=== PATIENT | female | born 1975 | race Caucasian/White ===

== ENCOUNTER → 2017-09-30 12:14 | Outpatient (CLI) | payer OTHER, SELFPAY ==
--- NOTE | 2017-09-30 | DI.MG.S_ITS ---
BILATERAL DIGITAL SCREENING MAMMOGRAM 3D/2D WITH CAD: 09/30/2017 CLINICAL: Routine screening. Comparison is made to exams dated: 08/28/2016 mammogram, 07/22/2015 mammogram, and 07/20/2014 mammogram - [facility]. The tissue of both breasts is heterogeneously dense. This may lower the sensitivity of mammography. Current study was also evaluated with a Computer Aided Detection (CAD) system. There are benign calcifications in both breasts. No significant masses, calcifications, or other findings are seen in either breast. There has been no significant interval change. IMPRESSION: BENIGN There is no mammographic evidence of malignancy. A 1 year screening mammogram is recommended. This exam was interpreted at Station ID: [id number]. NOTE: For mammograms, a report in lay terms will be sent to the patient. Approximately 15% of breast malignancies will not be visualized mammographically. In the management of a palpable breast mass, a negative mammogram must not discourage biopsy of a clinically suspicious lesion. Electronically Signed By: Ranjit moy/wero:09/30/2017 20:32:59 copy to: Olivia Lewis letter sent: Normal Exam ACR BI-RADS Category 2: Benign Finding(s) 3342F
== END ==
PROVIDERS: Family Provider Family Medicine; PCP Family Medicine; Visit Provider Family Medicine
DX: Z12.31 Encounter for screening mammogram for malignant neoplasm of breast (principal)
CPT/HCPCS: 77063; 77067

== ENCOUNTER → 2017-10-30 15:46 | Outpatient (CLI) | payer OTHER, SELFPAY ==
[2017-10-30 16:09] LABS: Add Manual Diff / Slide Review NO; Basophils Percent Auto 1.3 % (0-2); Eosinophils Percent Auto 2.3 % (2-4); Hematocrit 39.3 % (36-46); Hemoglobin 13.5 g/dL (12.0-16.0); Lymphocytes Percent Auto 24.7 % (25-40); Mean Corpuscular HGB Conc 34.4 % (30-36); Mean Corpuscular Volume 87.2 fL (80-100); Monocytes Percent Auto 8.5 % (3-14); Neutrophils Absolute Auto 5000 /uL (3000-5900); Neutrophils Percent Auto 63.2 % (50-75); Platelet Count 243 X10^3/uL (150-400); Red Cell Distribution Width 12.7 % (11.6-14.8); White Blood Cell Count 7.9 X10^3/uL (4.5-11.0)
[2017-10-30 16:56] LABS: Erythrocyte Sedimentation Rate 14 MM/HR (0-20)
[2017-10-30 17:15] LABS: Alanine Aminotransferase 20 IU/L (9-52); Albumin 4.3 g/dL (3.5-5.0); Albumin Globulin Ratio 1.5 (1.0-2.8); Alkaline Phosphatase 56 U/L (38-126); Aspartate Aminotransferase 23 IU/L (14-36); Bilirubin Total 0.5 mg/dL (0.2-1.3); Blood Urea Nitrogen 21 mg/dL (7-17); C-Reactive Protein Quant < 0.5 mg/dL (<1.0); Calcium 9.9 mg/dL (8.4-10.2); Carbon Dioxide 27 mmol/L (22-32); Chloride 103 mmol/L (98-107); Estimated Glomerular Filt Rate > 60.0 mL/min (>60); Globulin 2.9 g/dL (1.7-4.1); Glucose 93 mg/dL (70-100); HEMOLYSIS < 15 (0-50); Potassium 4.9 mmol/L (3.4-5.1); Sodium 142 mmol/L (137-145); Total Protein 7.2 g/dL (6.3-8.2)
[2017-10-30 17:38] LABS: Vitamin D 25 Hydroxy (D3) 49.5 ng/mL (30.0-100.0)
[2017-10-30 17:47] LABS: Ferritin 37.4 ng/mL (6.27-137)
[2017-10-30 17:52] LABS: TSH w/ Reflex to FT4 2.57 uIU/mL (0.47-4.68)
[2017-10-30 18:01] LABS: Vitamin B12 974 pg/mL (239-931)
== END ==
PROVIDERS: Family Provider Family Medicine; PCP Family Medicine; Visit Provider Family Medicine
DX: K14.6 Glossodynia (principal); M54.9 Dorsalgia, unspecified
CPT/HCPCS: 36415; 80053; 82306; 82607; 82728; 84443; 85025; 85651; 86140

== ENCOUNTER 2018-02-06 10:07 | Emergency (ER) | payer OTHER, SELFPAY ==
[2018-02-06 10:15] VITALS: BP 148/98; PULSE 72; RESP 16; TEMP 36.4; O2SAT 100
[2018-02-06] MEDS: ONDANSETRON 4 MG/2 ML INJ IV (11:58)
[2018-02-06] MEDS: SODIUM CHLORIDE 0.9% 1,000 ML 1000 ML IV (11:58)
[2018-02-06 12:20] VITALS: BP 123/77; PULSE 60; RESP 14; O2SAT 100
--- NOTE | 2018-02-06 12:21 | ED.ABDPAIN ---
HPI - Abdominal Pain <LUDIVINA Durbin - Last Filed: 02/06/18 21:44> General Chief Complaint: Abdominal Pain Stated Complaint: POSSIBLE APPENDICITIS Time Seen by Provider: 02/06/18 12:06 Source: patient Mode of arrival: ambulatory Limitations: no limitations History of Present Illness HPI narrative: 42-year-old female with history of hypothyroidism and is a nonsmoker here for complaint of abdominal pain over the past couple of days. She states area it mostly to her right lower quadrant that started yesterday. She denies any urinary symptoms. She does report having some constipation last bowel movement was earlier today were was 1st constipation and then diarrhea. She reports that after having the bowel movement she did have some reduction of her discomfort. She denies any fevers or chills. No bloody stool. Positive p.o. intake although last today. She denies any stressors of her discomfort. complaint: abdominal pain Related Data Home Medications Medication Instructions Recorded Confirmed [PROTANDIM] 1 tab PO DAILY #0 07/30/16 02/06/18 Fat Burner 1 dose PO DIRECTED 02/06/18 02/06/18 Probiotic 1 cap PO DAILY 02/06/18 02/06/18 Previous Rx's Medication Instructions Recorded magnesium citrate 296 ml PO NOW #296 ml 02/06/18 polyethylene glycol 3350 [Miralax] 17 gram PO DAILY #14 each 02/06/18 Allergies Allergy/AdvReac Type Severity Reaction Status Date / Time Cephalosporins Allergy Severe ANAPHYLAXIS Verified 10/30/17 15:11 [CEPHALOSPORINS] ketorolac [From TORADOL] Allergy Severe VISION Verified 10/30/17 15:11 CHANGES/LOSS OF VISION Sulfa (Sulfonamide Allergy Severe ANAPHYLAXIS Verified 10/30/17 15:11 Antibiotics) [SULFA (SULFONAMIDE ANTIBIOTICS)] Review of Systems <LUDIVINA Durbin - Last Filed: 02/06/18 21:44> Constitutional Denies chills, Denies fatigue, Denies fever(s), Denies lethargy and Denies weakness Eyes Denies change in vision, Denies eye discharge, Denies irritation and Denies loss of vision ENT Ears, Nose, Mouth, and Throat: Denies change in voice, Denies neck pain and Denies sore throat Cardiovascular Denies dyspnea and Denies dyspnea on exertion Respiratory Denies cough, Denies dyspnea, Denies dyspnea on exertion and Denies wheezing Gastrointestinal Gastrointestinal: Reports abdominal pain and Reports constipation Genitourinary Denies hematuria, Denies flank pain, Denies urinary incontinence and Denies urinary urgency Musculoskeletal Denies neck pain Integumentary/Breasts Denies pruritus, Denies erythema, Denies rash and Denies wounds Neurologic Denies confusion, Denies loss of vision and Denies weakness Psychiatric Denies anxiety, Denies confusion, Denies depression, Denies homicidal ideation and Denies suicidal ideation Endocrine Denies fatigue and Denies flushing Hematologic/Lymphatic Denies easy bruising Allergic/Immunologic Denies wheezing Exam <LUDIVINA Durbin - Last Filed: 02/06/18 21:44> Initial Vital Signs Initial Vital Signs: Vital Signs Temperature 97.6 F 02/06/18 10:15 Pulse Rate 72 02/06/18 10:15 Respiratory Rate 16 02/06/18 10:15 Blood Pressure 148/98 H 02/06/18 10:15 Pulse Oximetry 100 02/06/18 10:15 Const General: cooperative and well developed Nutritional Appearance: well nourished Orientation: alert, awake, oriented x3 and not confused [facility] Mouth: oral mucosae normal and moist mucous membranes Eyes Conjunctivae: conjunctivae normal Sclera: sclerae normal Pupils: PERRL EOM: EOM intact bilaterally Resp Effort & Inspection: normal respiratory effort, able to speak in complete sentences, no respiratory distress and no use of accessory muscles Auscultation: clear to auscultation bilaterally, no rales, no rhonchi and no wheezes Cardio Rate: regular rate Rhythm: regular rhythm Heart Sounds: no click, no gallops, no murmurs and no rubs GI Inspection: non-distended Palpation: soft, no hepatosplenomegaly, No guarding, No pulsatile mass and No tender Auscultation: normal bowel sounds Other: Mild tenderness on palpation of the right lower quadrant. General: No CVA tenderness Skin General: no rashes or lesions noted, No jaundice and No petechiae Neuro General: alert, oriented x3, gait normal and no focal motor deficits Speech: speech normal <Barbara Lange DO - Last Filed: 02/07/18 08:28> Initial Vital Signs Initial Vital Signs: Vital Signs Temperature 97.6 F 02/06/18 10:15 Pulse Rate 72 02/06/18 10:15 Respiratory Rate 16 02/06/18 10:15 Blood Pressure 148/98 H 02/06/18 10:15 Pulse Oximetry 100 02/06/18 10:15 Course <LUDIVINA Durbin - Last Filed: 02/06/18 21:44> Orders Ordered: Discontinued Medications Sodium Chloride (Normal Saline 0.9%) 1,000 mls @ 1,000 mls/hr IV BOLUS ONE Stop: 02/06/18 12:54 Last Infusion: 02/06/18 13:30 Dose: 0 mls/hr Admin: 02/06/18 11:58 Dose: 1,000 mls/hr Ondansetron HCl (Zofran) 4 mg IV NOW ONE Stop: 02/06/18 11:39 Last Admin: 02/06/18 11:58 Dose: 4 mg Vital Signs - 8 hr 02/06/18 14:27 Pulse Rate 70 Respiratory Rate 14 Blood Pressure [Left Arm] 122/74 Pulse Oximetry 99 <Barbara Lange DO - Last Filed: 02/07/18 08:28> Orders Ordered: Discontinued Medications Sodium Chloride (Normal Saline 0.9%) 1,000 mls @ 1,000 mls/hr IV BOLUS ONE Stop: 02/06/18 12:54 Last Infusion: 02/06/18 13:30 Dose: 0 mls/hr Admin: 02/06/18 11:58 Dose: 1,000 mls/hr Ondansetron HCl (Zofran) 4 mg IV NOW ONE Stop: 02/06/18 11:39 Last Admin: 02/06/18 11:58 Dose: 4 mg Vital Signs - 8 hr 02/06/18 14:27 Pulse Rate 70 Respiratory Rate 14 Blood Pressure [Left Arm] 122/74 Pulse Oximetry 99 MDM - Abdominal Pain <LUDIVINA Durbin - Last Filed: 02/06/18 21:44> Lab Data Result diagrams: 02/06/18 12:35 02/06/18 12:35 Lab Results 02/06/18 02/06/18 02/06/18 Range/Units 12:35 12:35 12:35 WBC 5.7 (4.5-11.0) X10^3/uL RBC 4.40 (4.0-5.2) X10^6/uL Hgb 12.9 (12.0-16.0) g/dL Hct 38.1 (36-46) % MCV 86.7 (80-100) fL MCH 29.3 (26-34) PG MCHC 33.7 (30-36) % RDW 12.7 (11.6-14.8) % Plt Count 227 (150-400) X10^3/uL Neut % (Auto) 58.7 (50-75) % Lymph % (Auto) 31.3 (25-40) % [place] % (Auto) 6.6 (3-14) % Eos % (Auto) 1.9 L (2-4) % Baso % (Auto) 1.5 (0-2) % Neut # (Auto) 3400 (8895-3380) /uL PT 11.5 (10.1-12.7) SECONDS INR 1.0 (0.9-1.3) APTT 30 (26.4-36.2) SECONDS Sodium 145 (137-145) mmol/L Potassium 4.2 (3.4-5.1) mmol/L Chloride 108 H (98-107) mmol/L Carbon Dioxide 24 (22-32) mmol/L BUN 11 (7-17) mg/dL Creatinine 0.90 (0.52-1.04) mg/dL Estimated GFR > 60.0 (>60) mL/min BUN/Creatinine Ratio 12.2 (6-22) Glucose 88 (70-100) mg/dL Calcium 8.6 (8.4-10.2) mg/dL Total Bilirubin 0.3 (0.2-1.3) mg/dL AST 20 (14-36) IU/L ALT 28 (9-52) IU/L Alkaline Phosphatase 56 (38-126) U/L Total Protein 6.6 (6.3-8.2) g/dL Albumin 3.9 (3.5-5.0) g/dL Globulin 2.7 (1.7-4.1) g/dL Albumin/Globulin Ratio 1.4 (1.0-2.8) Lipase 129 (23-300) U/L Point of care testing: Point of Care Testing Test Results Negative Urine Dip Bedside Urine Glucose Negative Bedside Urine Bilirubin - Negative Bedside Urine Ketone - Negative Urine Specific Baxter 1.015 Bedside Urine Occult Blood - Negative Bedside Urine pH 6.5 Bedside Urine Protein - Negative Bedside Urine Urobilinogen - Negative Bedside Urine Nitrite - Negative Bedside Urine Leukocytes - Negative Esterase ECG Data Interpretation: [address] [place] [id number] Scan Report Signed Patient: Lisa Nice MR#: [id number] : 1975 Acct:[id number] Age/Sex: 42 / F Date of Service: 02/06/18 Loc: ED Accession Number: [id number] Procedure: CT abdomen pelvis w con Ordering Provider: Luis Higgins PROCEDURE: CT ABDOMEN PELVIS W CON INDICATIONS: Right lower quadrant pain TECHNIQUE: After the administration of intravenous contrast, 5 mm thick sections acquired from the diaphragm to the symphysis. 5 mm coronal and sagittal reformats were acquired. For radiation dose reduction, the following was used: automated exposure control, adjustment of mA and/or kV according to patient size. COMPARISON: [facility], CT, ABDOMEN/PELVIS WITH CONTRAST, 07/30/2016, 18:24. FINDINGS: Image quality: Excellent. ABDOMEN: Lung bases: Lung bases are clear. Heart size is normal. Solid organs: Liver is enlarged. Gallbladder is unremarkable. Biliary system is non dilated. Pancreas enhances normally. Spleen is normal in size and enhancement. No adrenal nodules. Kidneys demonstrate normal size and enhancement, without hydronephrosis. Peritoneum and bowel: Bowel loops demonstrate normal wall thickness and caliber. No free fluid or air. Colonic diverticula are present. There is a very minimal appearance of thickening without definitive pericolonic inflammation within the distal descending colon. Prominent stool is present throughout the colon. Nodes and vessels: No retroperitoneal or mesenteric adenopathy by size criteria. Aorta and inferior vena cava are normal in size. Miscellaneous: No ventral hernias. PELVIS: Genitourinary: Bladder wall thickness is normal. Miscellaneous: No inguinal hernias or adenopathy. Bones: No suspicious bony lesions. No vertebral body compression fractures. IMPRESSION: 1. Minimal appearance of thickening in the distal descending colon without inflammatory change. It could be secondary to incomplete distension. However, correlation to patient's symptoms is recommended, as early colitis cannot be excluded. Dictated by: Jesi Grey M.D. on 02/06/2018 at 13:59 Approved by: Jesi Grey M.D. on 02/06/2018 at 14:35 MDM Narrative Medical decision making narrative: CBC Chem panel and lipase were obtained were unremarkable. Urinalysis was negative for urinary tract infection and . CT of the abdomen was obtained and shows a prominent amount of stool throughout the colon. CT also shows some minimal thickening of the the distal descending colon with no inflammatory changes. Pain is mostly to the right lower quadrant at this time. Doubtful that this is significant finding. With prominent amount of stool throughout the colon suspect the that constipation is cause of her discomfort. Will treat her with magnesium citrate to help lower stool load. Follow up with primary care provider in the next few days for re-evaluation. She is also prescribed MiraLax for the next couple weeks also see if it helps with her constipation. Plenty of fluids. For any worsening symptoms return emergency room. <Barbara Lange, DO - Last Filed: 02/07/18 08:28> Lab Data Lab Results 02/06/18 02/06/18 02/06/18 Range/Units 12:35 12:35 12:35 WBC 5.7 (4.5-11.0) X10^3/uL RBC 4.40 (4.0-5.2) X10^6/uL Hgb 12.9 (12.0-16.0) g/dL Hct 38.1 (36-46) % MCV 86.7 (80-100) fL MCH 29.3 (26-34) PG MCHC 33.7 (30-36) % RDW 12.7 (11.6-14.8) % Plt Count 227 (150-400) X10^3/uL Neut % (Auto) 58.7 (50-75) % Lymph % (Auto) 31.3 (25-40) % [place] % (Auto) 6.6 (3-14) % Eos % (Auto) 1.9 L (2-4) % Baso % (Auto) 1.5 (0-2) % Neut # (Auto) 3400 (0319-7848) /uL PT 11.5 (10.1-12.7) SECONDS INR 1.0 (0.9-1.3) APTT 30 (26.4-36.2) SECONDS Sodium 145 (137-145) mmol/L Potassium 4.2 (3.4-5.1) mmol/L Chloride 108 H (98-107) mmol/L Carbon Dioxide 24 (22-32) mmol/L BUN 11 (7-17) mg/dL Creatinine 0.90 (0.52-1.04) mg/dL Estimated GFR > 60.0 (>60) mL/min BUN/Creatinine Ratio 12.2 (6-22) Glucose 88 (70-100) mg/dL Calcium 8.6 (8.4-10.2) mg/dL Total Bilirubin 0.3 (0.2-1.3) mg/dL AST 20 (14-36) IU/L ALT 28 (9-52) IU/L Alkaline Phosphatase 56 (38-126) U/L Total Protein 6.6 (6.3-8.2) g/dL Albumin 3.9 (3.5-5.0) g/dL Globulin 2.7 (1.7-4.1) g/dL Albumin/Globulin Ratio 1.4 (1.0-2.8) Lipase 129 (23-300) U/L Point of care testing: Point of Care Testing Test Results Negative Urine Dip Bedside Urine Glucose Negative Bedside Urine Bilirubin - Negative Bedside Urine Ketone - Negative Urine Specific Baxter 1.015 Bedside Urine Occult Blood - Negative Bedside Urine pH 6.5 Bedside Urine Protein - Negative Bedside Urine Urobilinogen - Negative Bedside Urine Nitrite - Negative Bedside Urine Leukocytes - Negative Esterase Discharge Plan Departure Patient Disposition: Home Clinical Impression: Abdominal pain Discharge Date/Time: 02/06/18 15:14 Interventions: ED Discharge Assessment Last Done: 02/06/18 15:13 Instructions: DI for Abdominal Pain-Adult Activity Restrictions/Additional Instructions: Laboratory results today were unremarkable. CT of the abdomen shows a good amount of stool in the colon. The suspect that constipation is cause of your discomfort. Your prescribed a laxative called magnesium citrate and also MiraLax. Follow up with primary care provider in the next couple days for re-evaluation. For any worsening symptoms return emergency room. Plenty of fluids. Prescriptions: New magnesium citrate solution 296 ml PO NOW Qty: 296 RF: 0 polyethylene glycol 3350 [Miralax] 17 gram powder in packet 17 gram PO DAILY Qty: 14 RF: 0 No Action [PROTANDIM] 1 tab PO DAILY Qty: 0 RF: 0 Probiotic 1 cap PO DAILY RF: 0 Fat Burner 1 dose PO DIRECTED RF: 0 Referrals: Pacheco Jacobs MD [Primary Care Provider] - <Barbara Lange DO - Last Filed: 02/07/18 08:28> Cosign ED Attending Cosignature Attestation: I was immediately available in the department for consultation. This documentation has been reviewed and I agree with assessment and plan. Supervised by Barbara Lange DO
--- NOTE | 2018-02-06 12:29 | DI.CT.S_ITS ---
PROCEDURE: CT ABDOMEN PELVIS W CON INDICATIONS: Right lower quadrant pain TECHNIQUE: After the administration of intravenous contrast, 5 mm thick sections acquired from the diaphragm to the symphysis. 5 mm coronal and sagittal reformats were acquired. For radiation dose reduction, the following was used: automated exposure control, adjustment of mA and/or kV according to patient size. COMPARISON: [facility], CT, ABDOMEN/PELVIS WITH CONTRAST, 07/30/2016, 18:24. FINDINGS: Image quality: Excellent. ABDOMEN: Lung bases: Lung bases are clear. Heart size is normal. Solid organs: Liver is enlarged. Gallbladder is unremarkable. Biliary system is non dilated. Pancreas enhances normally. Spleen is normal in size and enhancement. No adrenal nodules. Kidneys demonstrate normal size and enhancement, without hydronephrosis. Peritoneum and bowel: Bowel loops demonstrate normal wall thickness and caliber. No free fluid or air. Colonic diverticula are present. There is a very minimal appearance of thickening without definitive pericolonic inflammation within the distal descending colon. Prominent stool is present throughout the colon. Nodes and vessels: No retroperitoneal or mesenteric adenopathy by size criteria. Aorta and inferior vena cava are normal in size. Miscellaneous: No ventral hernias. PELVIS: Genitourinary: Bladder wall thickness is normal. Miscellaneous: No inguinal hernias or adenopathy. Bones: No suspicious bony lesions. No vertebral body compression fractures. IMPRESSION: 1. Minimal appearance of thickening in the distal descending colon without inflammatory change. It could be secondary to incomplete distension. However, correlation to patient's symptoms is recommended, as early colitis cannot be excluded. Dictated by: Jesi Grey M.D. on 02/06/2018 at 13:59 Approved by: Jesi Grey M.D. on 02/06/2018 at 14:35
[2018-02-06 12:49] LABS: Prothrombin Time 11.5 SECONDS (10.1-12.7)
[2018-02-06 12:50] LABS: Add Manual Diff / Slide Review NO; Basophils Percent Auto 1.5 % (0-2); Eosinophils Percent Auto 1.9 % (2-4); Hematocrit 38.1 % (36-46); Hemoglobin 12.9 g/dL (12.0-16.0); Lymphocytes Percent Auto 31.3 % (25-40); Mean Corpuscular HGB Conc 33.7 % (30-36); Mean Corpuscular Hemoglobin 29.3 PG (26-34); Mean Corpuscular Volume 86.7 fL (80-100); Monocytes Percent Auto 6.6 % (3-14); Neutrophils Absolute Auto 3400 /uL (1500-7000); Neutrophils Percent Auto 58.7 % (50-75); Platelet Count 227 X10^3/uL (150-400); Red Cell Distribution Width 12.7 % (11.6-14.8); White Blood Cell Count 5.7 X10^3/uL (4.5-11.0)
[2018-02-06 12:52] LABS: PTT Partial Thromboplastin Tim 30 SECONDS (26.4-36.2)
[2018-02-06 12:54] LABS: Alanine Aminotransferase 28 IU/L (9-52); Albumin 3.9 g/dL (3.5-5.0); Albumin Globulin Ratio 1.4 (1.0-2.8); Alkaline Phosphatase 56 U/L (38-126); Aspartate Aminotransferase 20 IU/L (14-36); BUN Creatinine Ratio 12.2 (6-22); Bilirubin Total 0.3 mg/dL (0.2-1.3); Blood Urea Nitrogen 11 mg/dL (7-17); Calcium 8.6 mg/dL (8.4-10.2); Carbon Dioxide 24 mmol/L (22-32); Chloride 108 mmol/L (98-107); Estimated Glomerular Filt Rate > 60.0 mL/min (>60); Globulin 2.7 g/dL (1.7-4.1); Glucose 88 mg/dL (70-100); HEMOLYSIS < 15 (0-50); Lipase 129 U/L (23-300); Potassium 4.2 mmol/L (3.4-5.1); Sodium 145 mmol/L (137-145); Total Protein 6.6 g/dL (6.3-8.2)
[2018-02-06 13:17] VITALS: BP 123/77; PULSE 57; RESP 17; O2SAT 100
[2018-02-06 14:27] VITALS: BP 122/74; PULSE 70; RESP 14; O2SAT 99
== END 2018-02-06 15:14 | disposition home or self-care (01) ==
PROVIDERS: Emergency Medicine; Emergency Provider Nurse Practitioner Family; Family Provider Family Medicine; PCP Family Medicine
DX: R10.9 Unspecified abdominal pain (principal)
CPT/HCPCS: 36415; 74177; 80053; 81003; 81025; 83690; 85025; 85610; 85730; 96361; 96374; 99283; 99285; J2405; Q9967

== ENCOUNTER 2018-02-21 09:05 | Emergency (ER) | payer OTHER, SELFPAY ==
[2018-02-21 09:10] VITALS: BP 132/87; PULSE 83; RESP 20; TEMP 36.9; O2SAT 100
--- NOTE | 2018-02-21 09:38 | ED.ABDPAIN ---
HPI - Abdominal Pain General Chief Complaint: Abdominal Pain Stated Complaint: DIVERTICULITIS Time Seen by Provider: 02/21/18 09:35 Source: patient and old records reviewed Mode of arrival: ambulatory Limitations: no limitations History of Present Illness HPI narrative: Patient is a 43-year-old female who presents with lower abdominal pressure and pain. His she says it has been ongoing since Saturday. She has painful intercourse she denies any vaginal discharge. She has some lower back pain as well. She does sweat while she is trying to urinate but denies dysuria or urinary frequency. She does have a history of diverticulitis with an abscess. His she was actually seen evaluated in the emergency department 02/06/2018 for right lower quadrant pain she had blood work and abdominal CT at that time which did show constipation. She denies any fever no nausea or vomiting. MD complaint: abdominal pain Related Data Home Medications Medication Instructions Recorded Confirmed Probiotic 1 cap PO DAILY 02/06/18 02/21/18 Fish Oil 1 cap PO DAILY 02/21/18 02/21/18 Protandim Nrf1 1 cap PO DAILY 02/21/18 02/21/18 Allergies Allergy/AdvReac Type Severity Reaction Status Date / Time Cephalosporins Allergy Severe ANAPHYLAXIS Verified 10/30/17 15:11 [CEPHALOSPORINS] ketorolac [From TORADOL] Allergy Severe VISION Verified 10/30/17 15:11 CHANGES/LOSS OF VISION Sulfa (Sulfonamide Allergy Severe ANAPHYLAXIS Verified 10/30/17 15:11 Antibiotics) [SULFA (SULFONAMIDE ANTIBIOTICS)] Review of Systems Review of Systems GENERAL: Denies chills, fatigue, malaise, fever, sweats, travel HEENT: Denies sinus pain, ear pain, sore throat, difficulty swallowing, neck pain RESPIRATORY: Denies dyspnea, cough, wheezing, hemoptysis, sputum. CARDIOVASCULAR: Denies chest pain, palpitations, orthopnea, edema GASTROINTESTINAL: See HPI : Denies dysuria, frequency, incontinence, hematuria, urinary retention, flank pain. MUSCULOSKELETAL: Denies weakness, joint pain, or bony pain SKIN: No rash, no erythema, no pruritus NEUROLOGIC: Denies weakness, dizziness, headache, numbness, change in speech, confusion PSYCHIATRIC: No concerning psychosocial issues. 12 point review of systems is negative except for those stated above and HPI [facility] Medical History Hypothyroidism (Chronic) Migraines (Chronic) Surgical History History of third molar tooth extraction (Resolved 1991) History of unilateral salpingectomy (Resolved 12/31/16) Status post laparoscopic supracervical hysterectomy (Resolved 12/31/16) Status post ovarian cystectomy (Resolved) Status post unilateral salpingo-oophorectomy (Resolved 1991) Social History Smoking Status: Never smoker Exam Initial Vital Signs Initial Vital Signs: Vital Signs Temperature 98.5 F 02/21/18 09:10 Pulse Rate 83 02/21/18 09:10 Respiratory Rate 20 02/21/18 09:10 Blood Pressure 132/87 02/21/18 09:10 Pulse Oximetry 100 02/21/18 09:10 GENERAL: Well-appearing, well-nourished and in no acute distress. HEENT: Head atraumatic,EOMI, pupils reactive, neck is supple no JVD CARDIOVASCULAR: Regular rate and rhythm without murmurs, rubs or gallops. RESPIRATORY: Breath sounds equal bilaterally, no wheezes rales or rhonchi. ABDOMEN: Soft, mild lower suprapubic abdominal discomfort no guarding or rebound no right upper quadrant pain or right lower quadrant pain : No CVA tenderness EXTREMITIES: Normal range of motion, no clubbing or edema. Neurovascularly intact NEUROLOGICAL: Alert and oriented x4.Normal gait and speech. Cranial nerves II through XII grossly intact. SKIN: Warm, dry, no laceration, no petechiae, no rashes or lesions. Course Orders Ordered: ED Orders 02/21/18 10:00 Complete Blood Count AUTO DIFF Stat Comprehensive Metabolic Panel Stat Lipase Stat Urine Microscopic Stat 02/21/18 10:33 CT abdomen pelvis w con Stat Discontinued Medications Levofloxacin (Levaquin) 750 mg in 150 mls @ 100 mls/hr IV NOW ONE Stop: 02/21/18 12:47 Last Infusion: 02/21/18 12:54 Dose: 0 mls/hr Admin: 02/21/18 11:32 Dose: 100 mls/hr Metronidazole (Flagyl) 500 mg in 100 mls @ 100 mls/hr IV NOW ONE Stop: 02/21/18 12:17 Last Infusion: 02/21/18 12:54 Dose: 0 mls/hr Admin: 02/21/18 11:32 Dose: 100 mls/hr Sodium Chloride (Normal Saline 0.9%) 1,000 mls @ 150 mls/hr IV CONT CHARLIE Last Admin: 02/21/18 14:29 Dose: Ketorolac Tromethamine (Toradol) 30 mg IV NOW ONE Stop: 02/21/18 09:37 Last Admin: 02/21/18 10:03 Dose: 30 mg Vital Signs - 8 hr 02/21/18 10:49 02/21/18 11:51 02/21/18 13:02 Pulse Rate 85 72 88 Respiratory Rate 18 16 16 Blood Pressure Blood Pressure [Left Arm] 123/84 113/64 114/77 Pulse Oximetry 100 100 99 02/21/18 14:52 02/21/18 15:16 Pulse Rate 72 78 Respiratory Rate 19 16 Blood Pressure 120/74 Blood Pressure [Left Arm] 125/72 Pulse Oximetry 98 98 MDM - Abdominal Pain Lab Data Attestation: I reviewed the patient's lab results. Result diagrams: 02/21/18 10:00 02/21/18 10:00 Lab Results 02/21/18 02/21/18 02/21/18 Range/Units 10:00 10:00 10:00 WBC 11.3 H (4.5-11.0) X10^3/uL RBC 4.43 (4.0-5.2) X10^6/uL Hgb 13.0 (12.0-16.0) g/dL Hct 38.3 (36-46) % MCV 86.5 (80-100) fL MCH 29.3 (26-34) PG MCHC 33.9 (30-36) % RDW 12.5 (11.6-14.8) % Plt Count 254 (150-400) X10^3/uL Neut % (Auto) 84.6 H (50-75) % Lymph % (Auto) 9.2 L (25-40) % [place] % (Auto) 5.4 (3-14) % Eos % (Auto) 0.1 L (2-4) % Baso % (Auto) 0.7 (0-2) % Neut # (Auto) 9600 H (4891-8398) /uL Sodium 137 (137-145) mmol/L Potassium 4.2 (3.4-5.1) mmol/L Chloride 102 (98-107) mmol/L Carbon Dioxide 21 L (22-32) mmol/L BUN 11 (7-17) mg/dL Creatinine 0.90 (0.52-1.04) mg/dL Estimated GFR > 60.0 (>60) mL/min BUN/Creatinine Ratio 12.2 (6-22) Glucose 84 (70-100) mg/dL Calcium 9.3 (8.4-10.2) mg/dL Total Bilirubin 1.0 (0.2-1.3) mg/dL AST 20 (14-36) IU/L ALT 20 (9-52) IU/L Alkaline Phosphatase 72 (38-126) U/L Total Protein 8.0 (6.3-8.2) g/dL Albumin 4.5 (3.5-5.0) g/dL Globulin 3.5 (1.7-4.1) g/dL Albumin/Globulin Ratio 1.3 (1.0-2.8) Lipase 86 (23-300) U/L Urine RBC 0-1/hpf (0-5/HPF) Urine WBC None seen (0-5/HPF) Ur Squamous Epith Cells 0-1 /hpf Urine Bacteria Occasional (0-1) (None) Ur Culture Indicated? Cult not indicated Point of care testing: Urine Dip Bedside Urine Glucose Negative Bedside Urine Bilirubin - Negative Bedside Urine Ketone +++ 80 Urine Specific [place] 1.020 Bedside Urine Occult Blood +/- Bedside Urine pH 5.5 Bedside Urine Protein - Negative Bedside Urine Urobilinogen - Negative Bedside Urine Nitrite - Negative Bedside Urine Leukocytes - Negative Esterase Imaging Data CT scan - abdomen: Radiologist's impression: PROCEDURE: CT ABDOMEN PELVIS W CON INDICATIONS: severe lower ab pain TECHNIQUE: After the administration of intravenous contrast, 5 mm thick sections acquired from the diaphragm to the symphysis. 5 mm coronal and sagittal reformats were acquired. For radiation dose reduction, the following was used: automated exposure control, adjustment of mA and/or kV according to patient size. COMPARISON: [facility], CT, ABDOMEN/PELVIS WITH CONTRAST, 07/10/2016, 19:10. [facility], CT, ABDOMEN/PELVIS WITH CONTRAST, 07/30/2016, 18:24. [facility], CT, CT ABDOMEN PELVIS W CON, 02/06/2018, 13:18. FINDINGS: Image quality: Excellent. ABDOMEN: Lung bases: Lung bases are clear. Heart size is normal. Solid organs: Liver is normal in size and enhancement. Gallbladder wall does not appear thickened. Biliary system is non dilated. Pancreas enhances normally. Spleen is normal in size and enhancement. No adrenal nodules. Kidneys demonstrate normal size and enhancement, without hydronephrosis. Peritoneum and bowel: The sigmoid colon is abnormal, with moderate wall thickening. There is a focal fluid collection seen immediately adjacent to the distal sigmoid colon posteriorly, with mild rim enhancement measures 2.5 x 1.8 cm, as on series 2 image 59. More posteriorly, there is additional fluid seen, with early loculation adjacent to the rectum, as on series 2 image 52 and series 4 image 32 and image 38. The largest locule measures 5.6 x 4.9 x 4.1 cm. No significant free air can be seen. No dilated loops of small bowel are seen. The colon elsewhere demonstrates an unremarkable appearance. Nodes and vessels: No retroperitoneal or mesenteric adenopathy by size criteria. Aorta and inferior vena cava are normal in size. Miscellaneous: No ventral hernias. PELVIS: Genitourinary: Bladder wall thickness is normal. Miscellaneous: No inguinal hernias or adenopathy. Bones: No suspicious bony lesions. No vertebral body compression fractures. S-shaped scoliotic curvature is seen. IMPRESSION: Diverticulitis with associated developing abscess collections. Dictated by: Harry Gil M.D. on 02/21/2018 at 10:02 MDM Narrative Medical decision making narrative: Dr. Crook called and notified of patient's CT results. He will see and evaluate shortly. Unable to interventional radiology procedure today. Surgery feels this is her best option. She has had this procedure in the past. I spoke with Dr. Dockery, hospitalist [facility] he was happy to accept patient. Patient is requesting that she go by POV. She has been transported by ambulance in the past. She is hemodynamically stable no longer requiring any IV medication. She is reliable. Discharge Plan Departure Patient Disposition: [facility] Clinical Impression: Diverticulitis Discharge Date/Time: 02/21/18 15:19 Interventions: ED Discharge Assessment Last Done: 01/11/19 15:51 Activity Restrictions/Additional Instructions: HAPPY BIRTHDAY!!!!! GO DIRECTLY TO [facility] CHECK-IN AT REGISTRATION DO NOT EAT OR DRINK ANYTHING KEEP IV IN PLACE Prescriptions: No Action Probiotic 1 cap PO DAILY RF: 0 Fish Oil 1 cap PO DAILY RF: 0 Protandim Nrf1 1 cap PO DAILY RF: 0
[2018-02-21] MEDS: KETOROLAC 60 MG/2 ML VIAL 30 MG IV (10:03)
[2018-02-21 10:06] LABS: Add Manual Diff / Slide Review NO; Basophils Percent Auto 0.7 % (0-2); Eosinophils Percent Auto 0.1 % (2-4); Hematocrit 38.3 % (36-46); Lymphocytes Percent Auto 9.2 % (25-40); Mean Corpuscular HGB Conc 33.9 % (30-36); Mean Corpuscular Hemoglobin 29.3 PG (26-34); Mean Corpuscular Volume 86.5 fL (80-100); Monocytes Percent Auto 5.4 % (3-14); Neutrophils Absolute Auto 9600 /uL (1500-7000); Neutrophils Percent Auto 84.6 % (50-75); Platelet Count 254 X10^3/uL (150-400); Red Blood Cell Count 4.43 X10^6/uL (4.0-5.2); Red Cell Distribution Width 12.5 % (11.6-14.8); White Blood Cell Count 11.3 X10^3/uL (4.5-11.0)
[2018-02-21 10:12] LABS: WBC Urine None Seen (0-5/HPF)
[2018-02-21 10:17] LABS: Alanine Aminotransferase 20 IU/L (9-52); Albumin 4.5 g/dL (3.5-5.0); Albumin Globulin Ratio 1.3 (1.0-2.8); Alkaline Phosphatase 72 U/L (38-126); Aspartate Aminotransferase 20 IU/L (14-36); BUN Creatinine Ratio 12.2 (6-22); Blood Urea Nitrogen 11 mg/dL (7-17); Calcium 9.3 mg/dL (8.4-10.2); Carbon Dioxide 21 mmol/L (22-32); Chloride 102 mmol/L (98-107); Estimated Glomerular Filt Rate > 60.0 mL/min (>60); Globulin 3.5 g/dL (1.7-4.1); Glucose 84 mg/dL (70-100); HEMOLYSIS < 15 (0-50); Lipase 86 U/L (23-300); Potassium 4.2 mmol/L (3.4-5.1); Sodium 137 mmol/L (137-145)
[2018-02-21 10:31] LABS: Bacteria Urine Occasional (0-1); Culture Indicated Urine Cult Not Indicated; RBC Urine 0-1/HPF (0-5/HPF); Squamous Epithelial Cell Urine 0-1 /HPF
--- NOTE | 2018-02-21 10:33 | DI.CT.S_ITS ---
PROCEDURE: CT ABDOMEN PELVIS W CON INDICATIONS: severe lower ab pain TECHNIQUE: After the administration of intravenous contrast, 5 mm thick sections acquired from the diaphragm to the symphysis. 5 mm coronal and sagittal reformats were acquired. For radiation dose reduction, the following was used: automated exposure control, adjustment of mA and/or kV according to patient size. COMPARISON: [facility], CT, ABDOMEN/PELVIS WITH CONTRAST, 07/10/2016, 19:10. [facility], CT, ABDOMEN/PELVIS WITH CONTRAST, 07/30/2016, 18:24. [facility], CT, CT ABDOMEN PELVIS W CON, 02/06/2018, 13:18. FINDINGS: Image quality: Excellent. ABDOMEN: Lung bases: Lung bases are clear. Heart size is normal. Solid organs: Liver is normal in size and enhancement. Gallbladder wall does not appear thickened. Biliary system is non dilated. Pancreas enhances normally. Spleen is normal in size and enhancement. No adrenal nodules. Kidneys demonstrate normal size and enhancement, without hydronephrosis. Peritoneum and bowel: The sigmoid colon is abnormal, with moderate wall thickening. There is a focal fluid collection seen immediately adjacent to the distal sigmoid colon posteriorly, with mild rim enhancement measures 2.5 x 1.8 cm, as on series 2 image 59. More posteriorly, there is additional fluid seen, with early loculation adjacent to the rectum, as on series 2 image 52 and series 4 image 32 and image 38. The largest locule measures 5.6 x 4.9 x 4.1 cm. No significant free air can be seen. No dilated loops of small bowel are seen. The colon elsewhere demonstrates an unremarkable appearance. Nodes and vessels: No retroperitoneal or mesenteric adenopathy by size criteria. Aorta and inferior vena cava are normal in size. Miscellaneous: No ventral hernias. PELVIS: Genitourinary: Bladder wall thickness is normal. Miscellaneous: No inguinal hernias or adenopathy. Bones: No suspicious bony lesions. No vertebral body compression fractures. S-shaped scoliotic curvature is seen. IMPRESSION: Diverticulitis with associated developing abscess collections. Dictated by: Harry Gil M.D. on 02/21/2018 at 10:02 Approved by: Harry Gil M.D. on 02/21/2018 at 10:09
[2018-02-21 10:49] VITALS: BP 123/84; PULSE 85; RESP 18; O2SAT 100
[2018-02-21] MEDS: levoFLOXacin 750 MG/150 ML PIGGYBACK 100 MG IV (11:32)
[2018-02-21] MEDS: metroNIDAZOLE 500 MG/100 ML PIGGYBACK 100 MG IV (11:32)
[2018-02-21 11:51] VITALS: BP 113/64; PULSE 72; RESP 16; O2SAT 100
[2018-02-21 13:02] VITALS: BP 114/77; PULSE 88; RESP 16; O2SAT 99
--- NOTE | 2018-02-21 14:00 | PC.NURSE ---
pt reports, hx of colon abscess a year ago, pt developed abdominal pain 5 days ago, with low back pain 2 days ago, difficulty with digestion had diarrhea yesterday, pt started liquid diet as of yesterday, last meal this morning at 8am. denies fever, nausea or vomiting.
[2018-02-21 14:52] VITALS: BP 125/72; PULSE 72; RESP 19; O2SAT 98
[2018-02-21 15:16] VITALS: BP 120/74; PULSE 78; RESP 16; O2SAT 98
--- NOTE | 2018-02-21 15:20 | PC.NURSE ---
tenderness with palpation , umbilical area.
--- NOTE | 2018-02-21 15:25 | PC.NURSE ---
called [phone] no answer.
== END 2018-02-21 15:19 | disposition short-term general hospital (02) ==
PROVIDERS: Emergency Provider Emergency Medicine; Family Provider Family Medicine; PCP Family Medicine
DX: K57.92 Diverticulitis of intestine, part unspecified, without perforation or abscess without bleeding (principal)
CPT/HCPCS: 36591; 74177; 80053; 81003; 81015; 83690; 85025; 96365; 96366; 96375; 96376; 99285; J1885; J1956; Q9967

== ENCOUNTER → 2018-03-10 10:39 | Outpatient (CLI) | payer OTHER, SELFPAY ==
--- NOTE | 2018-03-10 11:30 | DI.CT.S_ITS ---
PROCEDURE: CT ABDOMEN PELVIS W CON INDICATIONS: diverticulitis with abscess and follow up TECHNIQUE: After the administration of oral and intravenous contrast, 5 mm thick sections acquired from the diaphragms to the symphysis. 5 mm thick coronal and sagittal reformats were performed. For radiation dose reduction, the following was used: automated exposure control, adjustment of mA and/or kV according to patient size. COMPARISON: [facility], CT, CT ABDOMEN PELVIS W CON, 02/21/2018, 10:27. [facility], CT, CT ABDOMEN PELVIS W CON, 02/06/2018, 13:18. FINDINGS: Image quality: Excellent. ABDOMEN: Lung bases: Lung bases are clear. Heart size is normal. Solid organs: Liver is normal in size and enhancement. Gallbladder appears normal. Biliary system is non-dilated. Pancreas enhances normally. Spleen is normal in size and enhancement. No adrenal nodules. Kidneys are normal in size and enhancement, without hydronephrosis. Peritoneum and bowel: Stomach, small bowel, and colon loops are normal in caliber and wall thickness. No free fluid or air. Nodes and vessels: No retroperitoneal or mesenteric adenopathy. Aorta and inferior vena cava are normal in caliber. Miscellaneous: No ventral hernias. PELVIS: Genitourinary: Bladder wall thickness is normal. Miscellaneous: No inguinal hernias or adenopathy. Free fluid deep within the pelvis previously identified during CT scanning 02/21/18 has almost completely resolved. There is only a slight triangular residual fluid collection at the lowest margin of the left posterior hemipelvis, centered on series 2 image 62, measuring 1.7 cm transverse and a 1.1 cm AP. Bones: No suspicious bony lesions. No vertebral body compression fractures. IMPRESSION: Almost complete resolution of the abnormal free fluid in this patient previously present 02/21/18 within the pelvis. A scant residual 1.1 x 1.7 cm fluid collection remains in the deep posterior left hemipelvis in the cul-de-sac. No abscess is currently suspected, no additional new abnormality elsewhere is found. Dictated by: Babar Plata M.D. on 03/10/2018 at 13:19 Approved by: Babar Plata M.D. on 03/10/2018 at 13:21
== END ==
PROVIDERS: PCP Family Medicine; Visit Provider Family Medicine
DX: K57.20 Diverticulitis of large intestine with perforation and abscess without bleeding (principal)
CPT/HCPCS: 74177; Q9967

== ENCOUNTER → 2018-05-26 11:55 | Outpatient (CLI) | payer OTHER, SELFPAY ==
--- NOTE | 2018-05-26 12:48 | DI.CT.S_ITS ---
PROCEDURE: CT ABDOMEN PELVIS W CON INDICATIONS: DIVERTICULAR ABCESS/COLOVESICAL FISTULA TECHNIQUE: After the administration of oral and intravenous contrast, 5 mm thick sections acquired from the diaphragms to the symphysis. 5 mm thick coronal and sagittal reformats were performed. For radiation dose reduction, the following was used: automated exposure control, adjustment of mA and/or kV according to patient size. COMPARISON: [facility], CT, CT ABDOMEN PELVIS W CON, 03/10/2018, 11:29. FINDINGS: Image quality: Excellent. ABDOMEN: Lung bases: Lung bases are clear. Heart size is normal. Solid organs: Liver is normal in size and enhancement. Gallbladder is within normal limits. Biliary system is non-dilated. Pancreas enhances normally. Spleen is normal in size and enhancement. No adrenal nodules. Kidneys are normal in size and enhancement, without hydronephrosis. Peritoneum and bowel: Stomach, small bowel, and colon loops are normal in caliber and wall thickness. No free fluid or air. Nodes and vessels: No retroperitoneal or mesenteric adenopathy. Aorta and inferior vena cava are normal in caliber. Miscellaneous: No ventral hernias. PELVIS: Genitourinary: Bladder wall thickness is normal. Miscellaneous: No inguinal hernias or adenopathy. Previously described residual 1.1 x 1.7 cm fluid collection in the posterior left hemipelvis in the cul-de-sac is no longer present. There is suggestion of fibrotic changes the left lower quadrant presacral space. Bones: No suspicious bony lesions. No vertebral body compression fractures. IMPRESSION: 1. Interval resolution of previously described residual small fluid collection in posterior left hemipelvis. Minimal amount of scarring/fibrotic changes are noted at the site of fluid collection. No new abdominal or pelvic fluid collection is seen. No peritoneal free air. Dictated by: Deep Cyr M.D. on 05/26/2018 at 14:54 Approved by: Deep Cyr M.D. on 05/26/2018 at 14:57
== END ==
PROVIDERS: PCP Family Medicine; Visit Provider Surgery
DX: K63.2 Fistula of intestine (principal); L02.818 Cutaneous abscess of other sites
CPT/HCPCS: 74177; Q9967

== ENCOUNTER → 2018-08-01 08:08 | Outpatient (CLI) | payer OTHER, SELFPAY ==
[2018-08-01 09:17] LABS: PTT Partial Thromboplastin Tim 34 SECONDS (26.4-36.2)
[2018-08-01 09:21] LABS: Add Manual Diff / Slide Review NO; Basophils Absolute Auto 100 /uL (0-100); Basophils Percent Auto 1.2 % (0-2); Eosinophils Absolute Auto 100 /uL (0-450); Eosinophils Percent Auto 2.4 % (2-4); Hematocrit 42.5 % (36-46); Hemoglobin 13.9 g/dL (12.0-16.0); Lymphocytes Absolute Auto 2000 /uL (1100-4500); Lymphocytes Percent Auto 36.1 % (25-40); Mean Corpuscular HGB Conc 32.6 % (30-36); Mean Corpuscular Hemoglobin 28.9 PG (26-34); Mean Corpuscular Volume 88.8 fL (80-100); Monocytes Absolute Auto 400 /uL (0-900); Monocytes Percent Auto 7.6 % (3-14); Neutrophils Absolute Auto 2900 /uL (1500-7000); Neutrophils Percent Auto 52.7 % (50-75); Platelet Count 246 X10^3/uL (150-400); Red Blood Cell Count 4.79 X10^6/uL (4.0-5.2); Red Cell Distribution Width 13.5 % (11.6-14.8); White Blood Cell Count 5.5 X10^3/uL (4.5-11.0)
[2018-08-01 09:27] LABS: Alanine Aminotransferase 17 IU/L (9-52); Albumin 4.6 g/dL (3.5-5.0); Albumin Globulin Ratio 1.4 (1.0-2.8); Alkaline Phosphatase 59 U/L (38-126); Aspartate Aminotransferase 24 IU/L (14-36); Bilirubin Total 0.5 mg/dL (0.2-1.3); Blood Urea Nitrogen 18 mg/dL (7-17); Calcium 9.3 mg/dL (8.4-10.2); Carbon Dioxide 27 mmol/L (22-32); Chloride 105 mmol/L (98-107); Estimated Glomerular Filt Rate > 60.0 mL/min (>60); Globulin 3.2 g/dL (1.7-4.1); Glucose 93 mg/dL (70-100); HEMOLYSIS < 15 (0-50); Sodium 141 mmol/L (137-145); Total Protein 7.8 g/dL (6.3-8.2)
[2018-08-01 11:46] LABS: Prothrombin Time 11.1 SECONDS (10.1-12.7)
== END ==
PROVIDERS: PCP Family Medicine; Visit Provider Surgery
DX: K57.20 Diverticulitis of large intestine with perforation and abscess without bleeding (principal)
CPT/HCPCS: 36415; 80053; 85025; 85610; 85730; 86850; 86900; 86901

== ENCOUNTER → 2019-01-06 16:27 | Outpatient (CLI) | payer OTHER, SELFPAY ==
--- NOTE | 2019-01-06 16:30 | DI.MG.S_ITS ---
BILATERAL DIGITAL SCREENING MAMMOGRAM 3D/2D WITH CAD: 01/06/2019 CLINICAL: Routine screening. Comparison is made to exams dated: 09/30/2017 mammogram, 08/28/2016 mammogram, and 07/22/2015 mammogram - [facility]. The tissue of both breasts is heterogeneously dense. This may lower the sensitivity of mammography. Current study was also evaluated with a Computer Aided Detection (CAD) system. There is an oval equal density mass with an obscured and circumscribed margin in the left breast at 12 o'clock middle depth. There also is an oval equal density mass with an obscured and circumscribed margin in the left breast at 12 o'clock posterior depth. No other significant masses, calcifications, or other findings are seen in either breast. IMPRESSION: INCOMPLETE: NEEDS ADDITIONAL IMAGING EVALUATION The oval equal density mass in the left breast at 12 o'clock middle depth is indeterminate. Mediolateral and spot compression views as well as additional views with possible ultrasound are recommended. The oval equal density mass in the left breast at 12 o'clock posterior depth is indeterminate. Mediolateral and spot compression views as well as additional views with possible ultrasound are recommended. This exam was interpreted at Station ID: [id number]. NOTE: For mammograms, a report in lay terms will be sent to the patient. Approximately 15% of breast malignancies will not be visualized mammographically. In the management of a palpable breast mass, a negative mammogram must not discourage biopsy of a clinically suspicious lesion. Electronically Signed By: Amado fernandez/wero:01/06/2019 17:44:44 copy to: Olivia Lewis letter sent: Additional Imaging Needed ACR BI-RADS Category 0: Incomplete 3340F
== END ==
PROVIDERS: PCP Family Medicine; Visit Provider Family Medicine
DX: Z12.31 Encounter for screening mammogram for malignant neoplasm of breast (principal)
CPT/HCPCS: 77063; 77067

== ENCOUNTER → 2019-07-13 10:47 | Outpatient (CLI) | payer OTHER, SELFPAY ==
[2019-07-13 13:04] LABS: Add Manual Diff / Slide Review NO; Basophils Absolute Auto 100 /uL (0-100); Basophils Percent Auto 1.1 % (0-2); Eosinophils Absolute Auto 100 /uL (0-450); Hematocrit 40.8 % (36-46); Hemoglobin 14.1 g/dL (12.0-16.0); Lymphocytes Absolute Auto 1600 /uL (1100-4500); Lymphocytes Percent Auto 21.8 % (25-40); Mean Corpuscular HGB Conc 34.4 % (30-36); Mean Corpuscular Hemoglobin 30.5 PG (26-34); Mean Corpuscular Volume 88.7 fL (80-100); Monocytes Absolute Auto 500 /uL (0-900); Neutrophils Absolute Auto 5000 /uL (1500-7000); Neutrophils Percent Auto 69.1 % (50-75); Platelet Count 208 X10^3/uL (150-400); Red Blood Cell Count 4.61 X10^6/uL (4.0-5.2); Red Cell Distribution Width 12.9 % (11.6-14.8); White Blood Cell Count 7.2 X10^3/uL (4.5-11.0)
[2019-07-13 13:42] LABS: Alanine Aminotransferase 19 IU/L (<35); Albumin 4.9 g/dL (3.5-5.0); Albumin Globulin Ratio 1.6 (1.0-2.8); Alkaline Phosphatase 65 U/L (38-126); Aspartate Aminotransferase 33 IU/L (14-36); BUN Creatinine Ratio 12.7 (6-22); Bilirubin Total 0.5 mg/dL (0.2-1.3); Blood Urea Nitrogen 14 mg/dL (7-17); Calcium 9.8 mg/dL (8.4-10.2); Carbon Dioxide 24 mmol/L (22-32); Chloride 102 mmol/L (98-107); Cholesterol 250 mg/dL (140-199); Estimated Glomerular Filt Rate 53.7 mL/min (>60); Glucose 84 mg/dL (70-100); HDL Cholesterol 86 mg/dL (40-60); HEMOLYSIS < 15 (0-50); LDL Cholesterol Calculated 146 mg/dL (<100); Potassium 4.1 mmol/L (3.4-5.1); Sodium 137 mmol/L (137-145); Total Protein 7.9 g/dL (6.3-8.2); Triglycerides 91 mg/dL (35-150)
[2019-07-13 14:14] LABS: Ferritin 31 ng/mL (6-137)
[2019-07-13 14:38] LABS: Free T4, Direct Thyroxine 1.02 ng/dL (0.78-2.19)
[2019-07-13 14:44] LABS: Folate 17.5 ng/mL (2.76-20.0); Vitamin B12 > 1000 pg/mL (239-931)
[2019-07-13 14:52] LABS: Thyroid Stimulating Hormone 3.09 uIU/mL (0.47-4.68)
[2019-07-14 03:37] LABS: Homocysteine 9.8 umol/L (0.0-14.5)
[2019-07-14 11:35] LABS: Free T3, Triiodothyronine Free 2.69 pg/mL (2.77-5.27)
[2019-07-14 11:42] LABS: Vitamin D 25 Hydroxy (D3) 37.3 ng/mL (30.0-100.0)
[2019-07-14 20:07] LABS: Deamidated Gliadin Ab IgA 6 units (0-19); Deamidated Gliadin Ab IgG 3 units (0-19); Immunoglobulin A,Qn 320 mg/dL (87-352); t-Transglutaminase IgA <2 U/mL (0-3)
[2019-07-16 16:14] LABS: Zinc 71 ug/dL (56-134)
== END ==
PROVIDERS: PCP Family Medicine; Referring Provider Naturopath; Visit Provider Naturopath
DX: K13.29 Other disturbances of oral epithelium, including tongue (principal); K90.9 Intestinal malabsorption, unspecified; M45.9 Ankylosing spondylitis of unspecified sites in spine; R10.84 Generalized abdominal pain; R13.10 Dysphagia, unspecified; R19.7 Diarrhea, unspecified; R41.840 Attention and concentration deficit; Z90.49 Acquired absence of other specified parts of digestive tract
CPT/HCPCS: 36415; 80053; 80061; 82306; 82525; 82607; 82728; 82746; 82784; 83090; 83516; 84439; 84443; 84481; 84630; 85025

== ENCOUNTER → 2019-07-14 12:36 | Outpatient (CLI) | payer OTHER, SELFPAY ==
[2019-07-21 21:39] LABS: Magnesium, RBC 4.2 mg/dL (4.2-6.8)
== END ==
PROVIDERS: PCP Family Medicine; Referring Provider Naturopath; Visit Provider Naturopath
DX: K13.29 Other disturbances of oral epithelium, including tongue (principal); K90.9 Intestinal malabsorption, unspecified; M45.9 Ankylosing spondylitis of unspecified sites in spine; R10.84 Generalized abdominal pain; R13.10 Dysphagia, unspecified; R19.7 Diarrhea, unspecified; R41.840 Attention and concentration deficit; Z90.49 Acquired absence of other specified parts of digestive tract
CPT/HCPCS: 83735

== ENCOUNTER → 2019-11-11 16:23 | Outpatient (CLI) | payer OTHER, SELFPAY ==
[2019-11-11 16:43] LABS: RBC Urine None Seen (0-5/HPF)
[2019-11-11 17:55] LABS: Add Manual Diff / Slide Review NO; Basophils Absolute Auto 100 /uL (0-100); Basophils Percent Auto 1.2 % (0-2); Eosinophils Absolute Auto 100 /uL (0-450); Eosinophils Percent Auto 2.4 % (2-4); Hematocrit 39.9 % (36-46); Hemoglobin 13.5 g/dL (12.0-16.0); Lymphocytes Absolute Auto 1800 /uL (1100-4500); Lymphocytes Percent Auto 32.3 % (25-40); Mean Corpuscular HGB Conc 33.7 % (30-36); Mean Corpuscular Hemoglobin 30.1 PG (26-34); Mean Corpuscular Volume 89.3 fL (80-100); Monocytes Absolute Auto 500 /uL (0-900); Monocytes Percent Auto 8.5 % (3-14); Neutrophils Absolute Auto 3100 /uL (1500-7000); Neutrophils Percent Auto 55.6 % (50-75); Platelet Count 205 X10^3/uL (150-400); Red Blood Cell Count 4.47 X10^6/uL (4.0-5.2); Red Cell Distribution Width 12.8 % (11.6-14.8); White Blood Cell Count 5.6 X10^3/uL (4.5-11.0)
[2019-11-11 18:13] LABS: Appearance Urine UA CLEAR; Bilirubin Urine UA NEGATIVE (NEGATIVE); Color Urine UA YELLOW; Glucose Urine UA NEGATIVE (Negative); Ketones Urine UA NEGATIVE (NEGATIVE); Leukocyte Esterase Urine UA NEGATIVE (NEGATIVE); Nitrite Urine UA NEGATIVE (Negative); Occult Blood Urine UA NEGATIVE (Negative); Protein Urine UA NEGATIVE (Negative); Urobilinogen Urine UA 0.2 E.U./dL (0.2)
[2019-11-11 18:17] LABS: Alanine Aminotransferase 18 IU/L (<35); Albumin 4.4 g/dL (3.5-5.0); Albumin Globulin Ratio 1.4 (1.0-2.8); Alkaline Phosphatase 67 U/L (38-126); Aspartate Aminotransferase 29 IU/L (14-36); BUN Creatinine Ratio 18.8 (6-22); Bilirubin Total 0.4 mg/dL (0.2-1.3); Blood Urea Nitrogen 19 mg/dL (7-17); Calcium 9.3 mg/dL (8.4-10.2); Carbon Dioxide 26 mmol/L (22-32); Chloride 104 mmol/L (98-107); Estimated Glomerular Filt Rate 59.3 mL/min (>60); Globulin 3.2 g/dL (1.7-4.1); Glucose 93 mg/dL (70-100); HEMOLYSIS < 15 (0-50); Magnesium 2.2 mg/dL (1.6-2.3); Potassium 4.1 mmol/L (3.4-5.1); Sodium 138 mmol/L (137-145); Total Protein 7.6 g/dL (6.3-8.2)
[2019-11-11 18:19] LABS: Erythrocyte Sedimentation Rate 9 MM/HR (0-20)
[2019-11-11 18:21] LABS: pH Urine UA 6.5 (4.5-8.0)
[2019-11-11 18:22] LABS: Amorphous Sediment Urine 1+; Bacteria Urine Occasional (0-1); Calcium Oxalate Crystals Urine Few; Culture Indicated Urine Cult Not Indicated; Mucus Urine 1+ (Negative); Squamous Epithelial Cell Urine 1-5 /HPF (0-5/HPF); WBC Urine 0-1/HPF (0-5/HPF)
[2019-11-11 18:52] LABS: Ferritin 28 ng/mL (6-137)
[2019-11-11 19:06] LABS: Vitamin B12 859 pg/mL (239-931)
[2019-11-12 00:36] LABS: C-Reactive Protein Quant < 0.5 mg/dL (<1.0)
[2019-11-12 22:07] LABS: Zinc 60 ug/dL (56-134)
== END ==
PROVIDERS: PCP Family Medicine; Referring Provider Naturopath; Visit Provider Naturopath
DX: K90.9 Intestinal malabsorption, unspecified (principal); R41.840 Attention and concentration deficit; K13.29 Other disturbances of oral epithelium, including tongue; R61 Generalized hyperhidrosis
CPT/HCPCS: 36415; 80053; 81001; 82607; 82728; 83735; 84443; 84481; 84630; 85025; 85651; 86140

== ENCOUNTER → 2020-06-07 12:55 | Outpatient (CLI) | payer OTHER, SELFPAY ==
[2020-06-07 13:39] LABS: COVID19 -Nasal RAPID POSITIVE (Negative)
== END ==
PROVIDERS: PCP Family Medicine; Visit Provider Physician Assistant
DX: U07.1 COVID-19 (principal)
CPT/HCPCS: 87635

== ENCOUNTER → 2020-06-24 15:03 | Outpatient (CLI) | payer OTHER, SELFPAY ==
[2020-06-24 16:00] LABS: Add Manual Diff / Slide Review NO; Basophils Absolute Auto 100 /uL (0-100); Basophils Percent Auto 1.1 % (0-2); Eosinophils Absolute Auto 200 /uL (0-450); Eosinophils Percent Auto 2.4 % (2-4); Hematocrit 37.2 % (36-46); Hemoglobin 12.3 g/dL (12.0-16.0); Lymphocytes Absolute Auto 2000 /uL (1100-4500); Lymphocytes Percent Auto 26.5 % (25-40); Mean Corpuscular HGB Conc 33.2 % (30-36); Mean Corpuscular Hemoglobin 29.4 PG (26-34); Mean Corpuscular Volume 88.4 fL (80-100); Monocytes Absolute Auto 600 /uL (0-900); Neutrophils Absolute Auto 4600 /uL (1500-7000); Platelet Count 269 X10^3/uL (150-400); White Blood Cell Count 7.4 X10^3/uL (4.5-11.0)
[2020-06-24 16:53] LABS: Alanine Aminotransferase 23 IU/L (<35); Albumin 4.3 g/dL (3.5-5.0); Albumin Globulin Ratio 1.4 (1.0-2.8); Alkaline Phosphatase 84 U/L (38-126); Aspartate Aminotransferase 32 IU/L (14-36); BUN Creatinine Ratio 19.1 (6-22); Bilirubin Total 0.4 mg/dL (0.2-1.3); Blood Urea Nitrogen 17 mg/dL (7-17); C-Reactive Protein Quant < 0.5 mg/dL (<1.0); Calcium 9.8 mg/dL (8.4-10.2); Carbon Dioxide 23 mmol/L (22-32); Chloride 104 mmol/L (98-107); Estimated Glomerular Filt Rate > 60.0 mL/min (>60); Glucose 99 mg/dL (70-100); HEMOLYSIS < 15 (0-50); Potassium 3.8 mmol/L (3.4-5.1); Sodium 136 mmol/L (137-145); Total Protein 7.3 g/dL (6.3-8.2)
[2020-06-24 16:56] LABS: Erythrocyte Sedimentation Rate 12 MM/HR (0-20)
== END ==
PROVIDERS: PCP Family Medicine; Referring Provider Family Medicine; Visit Provider Family Medicine
DX: M45.9 Ankylosing spondylitis of unspecified sites in spine (principal)
CPT/HCPCS: 36415; 80053; 85025; 85651; 86140

== ENCOUNTER → 2020-08-03 11:50 | Outpatient (CLI) | payer OTHER, SELFPAY ==
--- NOTE | 2020-08-03 11:59 | DI.RAD.S_ITS ---
PROCEDURE: XR THORACIC SPINE 2V INDICATIONS: CERVICAL/THORACIC/LUMBAR SPINE PAIN TECHNIQUE: 2 views of the thoracic spine were acquired. COMPARISON: [facility], , SPINE THORACIC 3VW, 05/18/2014, 17:09. FINDINGS: Bones: No fractures or dislocations. No suspicious bony lesions. 12 pairs of ribs are noted, and appear intact where visualized. Multilevel mild disc space narrowing is present. Non bridging anterior osteophytes are present. Soft tissues: No paravertebral stripe thickening. IMPRESSION: Multilevel degenerative disc space narrowing and anterior osteophytes are noted. Dictated by: Jesi Grey M.D. on 08/03/2020 at 12:56 Approved by: Jesi Grey M.D. on 08/03/2020 at 12:58
--- NOTE | 2020-08-03 11:59 | DI.RAD.S_ITS ---
PROCEDURE: XR LUMBAR SPINE 2-3V INDICATIONS: CERVICAL/THORACIC/LUMBAR SPINE PAIN TECHNIQUE: 3 views of the lumbar spine were acquired. COMPARISON: [facility], , -SPINE 2-3 VIEWS, 05/07/2014, 10:47. FINDINGS: Bones: Transitional anatomy is present with lumbarization of the 1st sacral vertebral body. For purposes of the exam and in keeping with prior study, vertebral bodies are labeled 1 through 5. There is minimal appearance of lumbar curvature , unchanged. Scattered minimal disc space narrowing is present slightly progressive. There is mild appearance of foraminal narrowing at L2-3 and L3-4. Soft tissues: Overlying bowel gas pattern is normal. No suspicious soft tissue calcifications. IMPRESSION: Early degenerative changes, minimally progressive compared to prior exam. Dictated by: Jesi Grey M.D. on 08/03/2020 at 12:58 Approved by: Jesi Grey M.D. on 08/03/2020 at 12:59
--- NOTE | 2020-08-03 11:59 | DI.RAD.S_ITS ---
PROCEDURE: XR CERVICAL SPINE 2V OR 3V INDICATIONS: CERVICAL/THORACIC/LUMBAR SPINE PAIN TECHNIQUE: 2 view(s) of the cervical spine were acquired. COMPARISON: None. FINDINGS: Bones: No fractures or dislocations to the C7-T1 level. The lateral masses of C1 appear intact on the odontoid view. No suspicious bony lesions. There is mild straightening of normal cervical curvature. There is trace retrolisthesis of C5 on C6 with moderate disc space narrowing at C5-6. Small anterior osteophyte is noted at C5. Soft tissues: No prevertebral soft tissue swelling. IMPRESSION: Scattered degenerative changes most notable at C5-6. Dictated by: Jesi Grey M.D. on 08/03/2020 at 12:59 Approved by: Jesi Grey M.D. on 08/03/2020 at 13:00
== END ==
PROVIDERS: PCP Family Medicine; Referring Provider Chiropractor; Visit Provider Chiropractor
DX: M99.01 Segmental and somatic dysfunction of cervical region (principal); M99.02 Segmental and somatic dysfunction of thoracic region; M99.03 Segmental and somatic dysfunction of lumbar region; M99.04 Segmental and somatic dysfunction of sacral region; M99.05 Segmental and somatic dysfunction of pelvic region; M54.2 Cervicalgia; M54.6 Pain in thoracic spine; M54.5 Low back pain; M47.812 Spondylosis without myelopathy or radiculopathy, cervical region
CPT/HCPCS: 72040; 72070; 72100

== ENCOUNTER → 2021-05-03 15:52 | Outpatient (CLI) | payer OTHER, SELFPAY ==
[2021-05-03 18:03] LABS: Follicle Stimulating Hormone 43.4 mIU/mL; Progesterone, Total 0.92 ng/mL
[2021-05-03 18:18] LABS: Estradiol, Total 28.6 pg/mL
== END ==
PROVIDERS: PCP Family Medicine; Referring Provider Physician Assistant; Visit Provider Physician Assistant
DX: E89.41 Symptomatic postprocedural ovarian failure (principal); R61 Generalized hyperhidrosis
CPT/HCPCS: 36415; 82670; 83001; 84144

== ENCOUNTER → 2022-08-06 09:10 | Outpatient (CLI) | payer OTHER, SELFPAY ==
[2022-08-06 12:03] LABS: Alanine Aminotransferase 25 IU/L (<35); Albumin 4.3 g/dL (3.5-5.0); Albumin Globulin Ratio 1.7 (1.0-2.8); Alkaline Phosphatase 84 U/L (38-126); Aspartate Aminotransferase 36 IU/L (14-36); BUN Creatinine Ratio 19.4 (6-22); Bilirubin Total 0.5 mg/dL (0.2-1.3); Blood Urea Nitrogen 20 mg/dL (7-17); Carbon Dioxide 29 mmol/L (22-32); Chloride 103 mmol/L (98-107); Estimated Glomerular Filt Rate > 60 mL/min (>60); Globulin 2.6 g/dL (1.7-4.1); Glucose 97 mg/dL (70-100); HEMOLYSIS 17 (0-50); Potassium 4.3 mmol/L (3.4-5.1); Sodium 139 mmol/L (137-145); Total Protein 6.9 g/dL (6.3-8.2)
[2022-08-09 03:18] LABS: Estradiol 31.4 pg/mL (.); Estriol,Serum <0.1 ng/mL (.); Estrone,Serum 65 pg/mL (.)
[2022-08-11 15:35] LABS: Percent Free Testosterone 0.64 % (0.50-2.80); Testosterone Free 0.22 ng/dL (0.10-0.85); Testosterone Total 34.6 ng/dL (.)
[2022-08-22 07:10] LABS: % Free Progesterone 1.7 % (.); Free Progesterone <0.17 ng/dL (.); Progesterone, Serum <10 ng/dL (.)
== END ==
PROVIDERS: PCP Family Medicine; Referring Provider Family Medicine; Visit Provider Family Medicine
DX: M79.7 Fibromyalgia (principal); N95.1 Menopausal and female climacteric states
CPT/HCPCS: 36415; 80053; 82670; 82677; 82679; 84144; 84270; 84402; 84403; 84999

== ENCOUNTER → 2023-02-20 15:08 | Outpatient (CLI) | payer OTHER, SELFPAY ==
[2023-02-20 17:03] LABS: Testosterone 185 ng/dL (5.71-77.0)
[2023-02-20 17:19] LABS: Follicle Stimulating Hormone 28.1 mIU/mL
[2023-02-20 17:35] LABS: Estradiol, Total 43.6 pg/mL
== END ==
PROVIDERS: PCP Family Medicine; Referring Provider Nurse Practitioner Family; Visit Provider Nurse Practitioner Family
DX: N95.8 Other specified menopausal and perimenopausal disorders (principal); Z15.81 Genetic susceptibility to multiple endocrine neoplasia [MEN]
CPT/HCPCS: 36415; 82670; 83001; 84403

== ENCOUNTER 2024-05-22 08:50 | Day surgery (SDC) | payer OTHER, SELFPAY ==
--- NOTE | 2024-05-22 | PATH_ITS ---
[facility] Accession Number: [id number] No. of containers..02 Tissue . 01 Material submitted: . PART A: stomach - ANTRUM PART B: colon - DESCENDING POLYP . 01 Diagnosis: Part A: ANTRUM: Gastric mucosa with mild chronic inflammation. No Helicobacter organisms identified. No intestinal metaplasia, dysplasia, or malignancy identified. . Part B: DESCENDING POLYP : Colonic mucosa with benign lymphoid aggregate. No neoplasm identified. [facility] 05/27/20241330 Local . 01 Electronically signed: . Amado Omer MD, Pathologist NPI- [id number] . 01 Gross description: . A. Received in formalin with two identifiers and antrum biopsyh, are two bruce soft tissue fragments 0.2 and 0.3 cm in greatest dimension. Submitted in cassette A1. . B. Received in formalin with two identifiers and descending colon polyp, are two bruce soft tissue fragments 0.3 and 0.7 cm in greatest dimension. Submitted in cassette B1. ([id number]) /YONY 05/27/20241330 Local . 01 Microscopic: . Part A: ANTRUM: An immunohistochemical stain was performed to evaluate for Helicobacter organisms and is negative. The control stains appropriately. * This test was developed and the performance characteristics were validated by [facility]. It has not been cleared or approved by the Food and Drug Administration. . 01 Pathologist provided ICD-10: K29.50, K63.89 . 01 CPT . 490761, 728407, C00257 Specimen Comment: A courtesy copy of this report has been sent to [facility] Pathology Performed at: [address] [facility], [place], [place] [id number] MD Amado Omer MD Phone: [phone]
[2024-05-22 09:37] VITALS: BP 133/77; PULSE 59; RESP 16; TEMP 36.8; O2SAT 100
[2024-05-22] MEDS: LACTATED RINGERS 1,000 ML 42 ML IV (09:46)
--- NOTE | 2024-05-22 10:16 | P.HP_ITS ---
History of Present Illness History of Present Illness Date Patient Seen: 05/22/24 Time Patient Seen: 10:16 Chief complaint: Colonoscopy Narrative: 49-year-old white female with longstanding esophageal reflux the got worse during , improved somewhat, then came back. She has been taking double dose proton pump inhibitor without improvement in her symptoms. She also presents for colon cancer screening. FOR[facility]LY [facility] Medical History Fibromyalgia (~2007) Kidney stones (~1997) COVID-19 Abnormal mammogram of left breast Migraines Hypothyroidism Diverticulitis of large intestine with abscess without bleeding (11/12/16) Ankylosing spondylitis (~2007) Pelvic adhesions Surgical History History of unilateral salpingectomy (12/31/16) Status post unilateral salpingo-oophorectomy (1991) Status post laparoscopic supracervical hysterectomy (12/31/16) Status post ovarian cystectomy History of third molar tooth extraction (1991) Family History Father Hypertension Hyperlipidemia Social History marital status: Smoking Status: Former smoker Tobacco: How many years used: 8 alcohol intake: current substance use type: does not use Meds Home Medications and Allergies Home Medications Medication Instructions Recorded Confirmed Type omeprazole 20 mg capsule,delayed 20 mg PO BID 08/20/23 05/22/24 History release Allergies Allergy/AdvReac Type Severity Reaction Status Date / Time Cephalosporins Allergy Severe ANAPHYLAXIS Verified 05/22/24 09:32 [CEPHALOSPORINS] ketorolac [From TORADOL] Allergy Severe VISION Verified 05/22/24 09:32 CHANGES/LOSS OF VISION Sulfa (Sulfonamide Allergy Severe ANAPHYLAXIS Verified 05/22/24 09:32 Antibiotics) [SULFA (SULFONAMIDE ANTIBIOTICS)] Exam Vital Signs (past 8 hours): - 05/22/24 09:37 Temperature 98.2 F Pulse Rate 59 L Respiratory Rate 16 Blood Pressure 133/77 Pulse Oximetry 100 Oxygen Delivery Method Room Air Oxygen Delivery Method Room Air Narrative Exam Narrative: Gen: NAD, sitting comfortably in bed, appears well HEENT: Sclera are anicteric, head is normocephalic and atraumatic, trachea is midline. CV: RRR, no JVD Resp: clear to auscultation bilaterally, equal chest wall movement bilaterally Abd: soft, nontender, normoactive bowel sounds Ext: no edema, full range of motion Neuro: Cranial nerves II-XII grossly intact, no focal deficits Skin: No erythema or ecchymosis Assessment & Plan Assessment and plan (1) Colon cancer screening: Status: Acute (2) Gastroesophageal reflux: Status: Acute Plan Patient presents for esophagogastroduodenoscopy and colonoscopy Risks, benefits, alternatives to EGD and colonoscopy explained, including but not limited to bowel perforation or other serious complication requiring surgery at less than 1 in 5000 esophagogastroduodenoscopy is or colonoscopies, abdominal pain, cramping or bleeding and less than 1% of colonoscopies, and the chances that we find a diagnosis that would require further intervention of about 2%. Patient agrees to proceed. Time-Based Coding :: [TOTAL MINUTES] spent with patient and on the chart (including review of chart, obtaining history, exam, reviewing outside data, placing orders, documenting exam and treatment plan, and counseling patient) on [DATE]. [employer] Document charge(s): No
--- NOTE | 2024-05-22 10:46 | PM.OP.EC ---
Operative Date/Time/Diagnoses Date of procedure: 05/22/24 Time of procedure: 10:46 Pre-op diagnosis: Gastroesophageal reflux disease, colon screening Post-op diagnosis: same (Bile reflux gastritis, descending colon polyp) Procedure & Clinicians Study performed: EGD with cold forceps biopsy Colonoscopy with cold snare polypectomy Same procedure as scheduled: Yes Indications: Reflux gastritis, colon screening Surgeon: Kingsley Carrion Procedure Notes SCOAP/Timeout: Performed Procedure in detail: Time-out was performed. Mac was induced. Patient was placed in left lateral decubitus position. Bite block was placed. Gastroscope was inserted through the bite block to the 2nd portion of the duodenal. Duodenal appeared normal. There was mild erythema of the stomach with bile noted along the greater curvature consistent with bile reflux gastritis. Antral biopsies were obtained. Retroflexed view showed a small hiatal hernia Hill class 1, with the Z-line located at 35 cm from the incisors. The Z-line was normal. Gastroscope was removed. The perineum was inspected without any gross abnormality. Lubricated pediatric colonoscope was inserted and advanced to the cecum. The terminal ileum was intubated. The colonoscope was withdrawn slowly inspecting the circumference of the colon. Small, benign-appearing polyp was removed from the descending colon with cold snare polypectomy completely and retrieved. Very small polyps may have been missed, prep quality was adequate. Retroflexed view of the rectum showed small, non prolapsed nonbleeding internal hemorrhoids. The scope was withdrawn the patient was taken to PACU in good condition. Scope withdrawal time: 9 Findings: gastritis, hiatal hernia, internal hemorrhoids and polyp Specimen(s): other (1. Antral biopsy 2. Descending colon polyp) Complications: none Post-procedure Recommendations: Colonscopy in 5 years, Reflux diet and Continue medication(s) (Omeprazole) Plan for aftercare: home Follow up: as needed Disposition: PACU
[2024-05-22 10:48] VITALS: BP 110/68; PULSE 64; RESP 20; TEMP 36.6; O2SAT 99
[2024-05-22 10:53] VITALS: BP 116/70; PULSE 63; RESP 16; O2SAT 100
[2024-05-22 10:58] VITALS: BP 121/77; PULSE 67; RESP 12; O2SAT 100
[2024-05-22 11:06] VITALS: BP 122/80; PULSE 61; RESP 14; TEMP 36.3; O2SAT 100
[2024-05-22] MEDS: ACETAMINOPHEN 325 MG TABLET 975 MG PO (11:34)
[2024-05-22 11:42] VITALS: BP 120/81; PULSE 52; RESP 16; TEMP 36.2; O2SAT 100
== END 2024-05-22 11:54 | disposition home or self-care (01) ==
PROVIDERS: PCP Family Medicine; Referring Provider Surgery; Visit Provider Surgery
PROC: 0DJ08ZZ Inspection of Upper Intestinal Tract, Via Natural or Artificial Opening Endoscopic (ICD-10-PCS; CPT 45385; principal; 2024-05-22 10:15)
PROC: 0DJD8ZZ Inspection of Lower Intestinal Tract, Via Natural or Artificial Opening Endoscopic (ICD-10-PCS; CPT 45378; 2024-05-22 10:15)
DX: Z12.11 Encounter for screening for malignant neoplasm of colon (principal); K21.9 Gastro-esophageal reflux disease without esophagitis; K44.9 Diaphragmatic hernia without obstruction or gangrene; K29.50 Unspecified chronic gastritis without bleeding; K63.5 Polyp of colon
CPT/HCPCS: 45385; 43239; J2704

== ENCOUNTER → 2024-08-11 13:41 | Outpatient (CLI) | payer OTHER, SELFPAY ==
--- NOTE | 2024-08-11 13:47 | DI.RAD.S_ITS ---
PROCEDURE: XR DEXA AXIAL SKELETON INDICATIONS: OSTEOPOROSIS COMPARISON: None. FINDINGS: Lumbar Spine: Bone mineral density is 0.937 g/cm2, T score -1.0, normal. Left Femoral Neck: Bone mineral density 0.753 g/cm2, T score -0.9. Left Hip: Bone mineral density is 0.929 g/cm2, T score -0.1, normal. Fracture Risk Calculation (when applicable): 10-year fracture risk of a major osteoporotic fracture 3.9 percent and of a hip fracture 0.2 percent. (T score greater or equal to -1.0 to: NORMAL) (T score from -1.1 to -2.4: OSTEOPENIA) (T score less than or equal to -2.5: OSTEOPOROSIS) IMPRESSION: Normal bone mineralization Follow-up guidelines as follows: Osteoporosis: Consider a repeat DEXA and Vertebral Fracture Assessment (VFA) exam in 2 years or sooner if medically necessary, to reassess this patient's status. Osteopenia: Consider a repeat DEXA in 2-3 years to reassess this patient's status, or if there is a new clinical indication. Normal: Consider a repeat DEXA in 5 years or sooner, or if there is a new clinical indication. All treatment decisions require clinical judgment and consideration of individual patient factors, including patient preferences, comorbidities, previous drug use, risk factors not captured in the FRAX model (e.g., frailty, falls, vitamin D deficiency, increased bone turnover, interval significant decline in bone density ) and possible under- or over-estimation of fracture risk by FRAX. In addition, the NOF Guide recommends that FDA-approved medical therapies be considered in postmenopausal women and men age >= 50 years with a: * Hip or vertebral (clinical or morphometric) fracture * T-score of <=-2.5 at the spine or hip * Ten-year fracture probability by FRAX of >= 3% for hip fracture or >=20% for major osteoporotic fracture. Approved by: Александр Kiran M.D. on 08/11/2024 at 17:05
[2024-08-11 14:57] LABS: Hemoglobin A1C% w Est Avg Glu 4.9 % (4.0-6.0)
[2024-08-11 15:17] LABS: Alanine Aminotransferase 21 IU/L (<35); Albumin 4.6 g/dL (3.5-5.0); Albumin Globulin Ratio 1.7 (1.0-2.8); Alkaline Phosphatase 94 U/L (38-126); Blood Urea Nitrogen 28 mg/dL (7-17); Calcium 9.5 mg/dL (8.4-10.2); Carbon Dioxide 25 mmol/L (22-32); Chloride 103 mmol/L (98-107); Cholesterol 239 mg/dL (140-199); Estimated Glomerular Filt Rate > 60 mL/min (>60); Globulin 2.7 g/dL (1.7-4.1); Glucose 89 mg/dL (70-99); HDL Cholesterol 86 mg/dL (40-60); HEMOLYSIS < 15 (0-50); Potassium 4.1 mmol/L (3.4-5.1); Sodium 137 mmol/L (137-145); Total Protein 7.3 g/dL (6.3-8.2); Triglycerides 130 mg/dL (35-150)
[2024-08-11 15:43] LABS: Thyroid Stimulating Hormone 2.68 uIU/mL (0.47-4.68)
[2024-08-11 16:39] LABS: Vitamin D 25 Hydroxy (D3) 102 ng/mL (30.0-100.0)
== END ==
PROVIDERS: PCP Family Medicine; Referring Provider Emergency Medicine; Visit Provider Emergency Medicine
DX: Z13.820 Encounter for screening for osteoporosis (principal); M85.80 Other specified disorders of bone density and structure, unspecified site; N95.1 Menopausal and female climacteric states; F52.0 Hypoactive sexual desire disorder; Z13.29 Encounter for screening for other suspected endocrine disorder; Z13.1 Encounter for screening for diabetes mellitus
CPT/HCPCS: 36415; 77080; 80053; 80061; 82172; 82306; 83036; 83695; 84403; 84443

== ENCOUNTER → 2024-10-22 15:22 | Outpatient (CLI) | payer OTHER, SELFPAY | PROVIDERS: PCP Family Medicine; Referring Provider Family Medicine; Visit Provider Emergency Medicine | DX: Z51.81 Encounter for therapeutic drug level monitoring (principal); Z79.890 Hormone replacement therapy | CPT/HCPCS: 36415; 84403 ==

== ENCOUNTER → 2024-12-14 14:51 | Outpatient (CLI) | payer OTHER, SELFPAY ==
[2024-12-14 16:49] LABS: Estradiol, Total 45.6 pg/mL
[2024-12-18 01:08] LABS: Testosterone, Free 0.7 pg/mL (0.0-4.2)
[2024-12-23 09:41] LABS: Percent Free Testosterone 1.31 % (0.50-2.80)
== END ==
PROVIDERS: PCP Family Medicine; Referring Provider Emergency Medicine; Visit Provider Emergency Medicine
DX: F52.0 Hypoactive sexual desire disorder (principal); N95.1 Menopausal and female climacteric states; Z79.890 Hormone replacement therapy
CPT/HCPCS: 36415; 82670; 84270; 84402; 84403

== ENCOUNTER → 2025-02-09 13:19 | Outpatient (CLI) | payer OTHER, SELFPAY ==
--- NOTE | 2025-02-09 13:20 | DI.US.S_ITS ---
PROCEDURE: US EXTREMITY NONVASC LOWER RT INDICATIONS: assess for underlying cyst formation of right knee TECHNIQUE: Real-time scanning was performed of the posterior right , with image documentation. COMPARISON: None. FINDINGS: Elongated approximate 8.8 cm x 4.2 cm anechoic cystic structure along the posterior knee without increased hyperemia on color Doppler. IMPRESSION: Posterior popliteal fossa 8.8 cm cyst, which may represent a Watkins's cyst. Dictated by: Shakeel Byrd M.D. on 02/09/2025 at 16:36 Approved by: Shakeel Byrd M.D. on 02/09/2025 at 16:37
== END ==
LOC: US 13:20
PROVIDERS: PCP Family Medicine; Referring Provider Family Medicine; Visit Provider Family Medicine
DX: M71.21 Synovial cyst of popliteal space [Baker], right knee (principal); M25.561 Pain in right knee; G89.29 Other chronic pain
CPT/HCPCS: 76882